=== PATIENT | male | born 1960 | race Caucasian/White ===

== ENCOUNTER 2018-10-01 22:00 | Emergency (ER) | payer OTHER, SELFPAY ==
[2018-10-01 22:10] VITALS: BP 161/95; PULSE 70; RESP 18; TEMP 37.1; O2SAT 98; BMI 27.8
--- NOTE | 2018-10-01 22:17 | DI.RAD.S_ITS ---
PROCEDURE: XR CHEST 1V INDICATIONS: Left chest pain TECHNIQUE: One view of the chest was acquired. COMPARISON: None. FINDINGS: Surgical changes and devices: None. Lungs and pleura: Lungs are clear. No pleural effusions or pneumothorax. Mediastinum: Mediastinal contours appear normal. Heart size is normal. Bones and chest wall: No suspicious bony lesions. Age-appropriate bony degenerative changes are seen. Overlying soft tissues appear unremarkable. IMPRESSION: Portable chest within normal limits. Note: No significant discrepancy from the preliminary report. Dictated by: Delvis Bell M.D. on 10/02/2018 at 5:47 Approved by: Delvis Bell M.D. on 10/02/2018 at 5:48
[2018-10-01] MEDS: SODIUM CHLORIDE 0.9% 1,000 ML 150 ML IV (22:24)
[2018-10-01] MEDS: ASPIRIN 81 MG TAB 324 MG PO (22:24)
[2018-10-01 22:30] LABS: D Dimer 255 ng/mL (<230)
[2018-10-01 22:32] LABS: Add Manual Diff / Slide Review NO; Alanine Aminotransferase 17 IU/L (21-72); Albumin 4.1 g/dL (3.5-5.0); Albumin Globulin Ratio 1.3 (1.0-2.8); Alkaline Phosphatase 42 U/L (38-126); Aspartate Aminotransferase 20 IU/L (17-59); BUN Creatinine Ratio 18.3 (6-22); Basophils Absolute Auto 100 /uL (0-100); Basophils Percent Auto 0.8 % (0-2); Bilirubin Total 0.5 mg/dL (0.2-1.3); Blood Urea Nitrogen 22 mg/dL (9-20); Carbon Dioxide 30 mmol/L (22-32); Chloride 103 mmol/L (98-107); Creatine Kinase 67 U/L (55-170); Eosinophils Absolute Auto 200 /uL (0-450); Eosinophils Percent Auto 3.7 % (2-4); Estimated Glomerular Filt Rate > 60.0 mL/min (>60); Globulin 3.1 g/dL (1.7-4.1); Glucose 114 mg/dL (70-100); HEMOLYSIS < 15 (0-50); Hematocrit 39.1 % (41-53); Hemoglobin 12.5 g/dL (13.5-17.5); Lipase 160 U/L (23-300); Lymphocytes Absolute Auto 1900 /uL (1100-4500); Lymphocytes Percent Auto 30.6 % (25-40); Mean Corpuscular HGB Conc 31.9 % (30-36); Monocytes Absolute Auto 800 /uL (0-900); Monocytes Percent Auto 12.8 % (3-14); Neutrophils Absolute Auto 3300 /uL (1500-7000); Neutrophils Percent Auto 52.1 % (50-75); Platelet Count 244 X10^3/uL (150-400); Potassium 3.8 mmol/L (3.4-5.1); Red Blood Cell Count 5.43 X10^6/uL (4.5-5.9); Red Cell Distribution Width 18.2 % (11.6-14.8); Sodium 142 mmol/L (137-145); Total Protein 7.2 g/dL (6.3-8.2); White Blood Cell Count 6.4 X10^3/uL (4.5-11.0)
[2018-10-01 22:44] LABS: Troponin I < 0.012 ng/mL (0.01-0.034)
--- NOTE | 2018-10-01 23:05 | ED_ITS ---
HPI - Chest Pain General Chief Complaint: Chest Pain Stated Complaint: Chest pain Time Seen by Provider: 10/01/18 22:00 Source: patient and family Mode of arrival: ambulatory Limitations: no limitations History of Present Illness HPI narrative: A 58-year-old male nonsmoker with benign medical history presents with his in the chief complaint of stabbing left anterior chest pain since last night. He denies associated symptoms such as dizziness or weakness nor lightheadedness. He has no cough, fever or chills. He denies any shortness of breath or hemoptysis. He has had no nausea, vomiting or diaphoresis. He denies any worsening symptoms with exertion. He denies any history of cancer or known clotting disorder but did travel by airplane from [place] few months ago. He denies any injury or overuse scenario MD complaint: chest pain Onset (ago): hour(s) Duration: intermittent Pain location: left chest Severity: mild Quality: sharp Pain radiation: none Relieving factors: nothing Exacerbating factors: nothing Treatments prior to arrival chest pain: none Review of Systems Constitutional Denies chills, Denies fever(s), Denies lethargy and Denies weakness Eyes Denies change in vision, Denies eye discharge, Denies irritation and Denies loss of vision ENT Ears, Nose, Mouth, and Throat: Denies change in voice, Denies neck pain and Denies sore throat Cardiovascular Reports chest pain, Denies irregular heart rhythm, Denies lightheadedness, Denie s palpitations, Denies dyspnea, Denies dyspnea on exertion and Denies orthopnea Respiratory Denies cough, Denies dyspnea, Denies dyspnea on exertion and Denies wheezing Gastrointestinal Gastrointestinal: Denies abdominal pain, Denies change in bowel habits, Denies diarrhea, Denies nausea and Denies vomiting Genitourinary Denies hematuria, Denies flank pain, Denies urinary incontinence and Denies urinary urgency Musculoskeletal Denies neck pain Integumentary/Breasts Denies pruritus, Denies erythema, Denies rash and Denies wounds Neurologic Denies confusion, Denies loss of vision and Denies weakness Psychiatric Denies anxiety, Denies confusion, Denies depression, Denies homicidal ideation and Denies suicidal ideation Endocrine Denies palpitations Hematologic/Lymphatic Denies easy bruising Allergic/Immunologic Denies wheezing [facility] Social History Smoking Status: Never smoker Social History Smoking Status: Never smoker Exam Narrative Exam Narrative: GEN: AOx3 and in mild distress EYES: Pupils are equal, round, and reactive to light and accommodation. Extraoccular muscles are intact bilaterally. There is no subconjunctival hemorrhage or exudate. CHEST: No worsening with palpation. Lungs are clear to auscultation bilaterally and free of wheezes, rales, or rhonchi. Heart rate is regular rhythm, there are no murmurs, clicks, rubs, or gallops. There is no chest wall tenderness. ABD: Abdomen is soft and nontender. There is no guarding or rebound. Bowel sounds are normal in all 4 quadrants. There is no mass or organomegaly. EXT: Full painless ROM of all extremities with no loss of sensation or strength. SKIN: Warm, pink, and dry. No erythema or rash Initial Vital Signs Initial Vital Signs: Vital Signs Temperature 98.7 F 10/01/18 22:10 Pulse Rate 70 10/01/18 22:10 Respiratory Rate 18 10/01/18 22:10 Blood Pressure 161/95 H 10/01/18 22:10 Pulse Oximetry 98 10/01/18 22:10 Scores HEART Score Heart Score history: Slightly Suspicious Heart Score EKG: Normal Heart Score Age: 45-64 years old Heart Score risk factors: No known risk factors Heart Score troponin: < or = to normal limit Heart Score Total: 1 PERC Score Age greater than or equal to 50 years: Yes Heart rate greater than or equal to 100 bpm: No Room Air O2 Sat less than 95%: No Unilateral leg swelling: No Recent trauma or surgery: No Hemoptysis: No Prior PE or DVT: No Hormone Use: No Total PERC Score: 1 Wells' Criteria for PE Clinical signs and symptoms of DVT: No PE is #1 Dx or equally likely: No Heart rate > 100: No Immobilization at least 3 days or surg in previous 4 weeks: No History of PE or DVT: No Hemoptysis: No Malignancy w/Treatment within 6 months or palliative: No Wells' PE Score total: 0 Course Orders Ordered: ED Orders 10/01/18 22:00 Complete Blood Count AUTO DIFF Stat Comprehensive Metabolic Panel Stat D Dimer Stat Lipase Stat Troponin & CK Cardiac Panel Stat 10/01/18 22:17 XR chest 1V Stat EKG-12 Lead Stat Discontinued Medications Aspirin (Aspirin Chew) 324 mg PO NOW ONE Stop: 10/01/18 22:18 Last Admin: 10/01/18 22:24 Dose: 324 mg Sodium Chloride (Normal Saline 0.9%) 1,000 mls @ 150 mls/hr IV CONT DAVID Last Infusion: 10/01/18 23:15 Dose: 0 mls/hr Admin: 10/01/18 22:24 Dose: 150 mls/hr Vital Signs - 8 hr 10/01/18 22:10 10/01/18 23:17 Temperature 98.7 F 98.8 F Pulse Rate 70 64 Respiratory Rate 18 18 Blood Pressure 161/95 H 137/89 Pulse Oximetry 98 99 MDM - Chest Pain Medical Records Data Attestation: I reviewed the patient's medical records. Lab Data Attestation: I reviewed the patient's lab results. Result diagrams: 10/01/18 22:00 10/01/18 22:00 Lab Results 10/01/18 10/01/18 10/01/18 Range/Units 22:00 22:00 22:00 WBC 6.4 (4.5-11.0) X10^3/uL RBC 5.43 (4.5-5.9) X10^6/uL Hgb 12.5 L (13.5-17.5) g/dL Hct 39.1 L (41-53) % MCV 72.0 L (80-100) fL MCH 23.0 L (26-34) PG MCHC 31.9 (30-36) % RDW 18.2 H (11.6-14.8) % Plt Count 244 (150-400) X10^3/uL Neut % (Auto) 52.1 (50-75) % Lymph % (Auto) 30.6 (25-40) % [place] % (Auto) 12.8 (3-14) % Eos % (Auto) 3.7 (2-4) % Baso % (Auto) 0.8 (0-2) % Neut # (Auto) 3300 (4056-0715) /uL Lymph # (Auto) 1900 (4963-7643) /uL [place] # (Auto) 800 (0-900) /uL Eos # (Auto) 200 (0-450) /uL Baso # (Auto) 100 (0-100) /uL D-Dimer 255 H (<230) ng/mL Sodium 142 (137-145) mmol/L Potassium 3.8 (3.4-5.1) mmol/L Chloride 103 (98-107) mmol/L Carbon Dioxide 30 (22-32) mmol/L BUN 22 H (9-20) mg/dL Creatinine 1.20 (0.66-1.25) mg/dL Estimated GFR > 60.0 (>60) mL/min BUN/Creatinine Ratio 18.3 (6-22) Glucose 114 H (70-100) mg/dL Calcium 9.0 (8.4-10.2) mg/dL Total Bilirubin 0.5 (0.2-1.3) mg/dL AST 20 (17-59) IU/L ALT 17 L (21-72) IU/L Alkaline Phosphatase 42 (38-126) U/L Total Creatine Kinase 67 (55-170) U/L CK-MB (CK-2) TNP CK-MB (CK-2) Rel Index TNP Troponin I < 0.012 (0.01-0.034) ng/mL Total Protein 7.2 (6.3-8.2) g/dL Albumin 4.1 (3.5-5.0) g/dL Globulin 3.1 (1.7-4.1) g/dL Albumin/Globulin Ratio 1.3 (1.0-2.8) Lipase 160 (23-300) U/L Imaging Data Chest x-ray: My impression: NAP ECG Data Attestation: I personally reviewed and interpreted this ECG as follows: Prior ECG tracings: not available for review Interpretation: EKG is normal sinus rhythm rate [ Sixty-seven] and free of any signs of ischemia or ectopy. No ST segmental elevation or depression. No T wave inversions. RBBB. FL 197. QRS 130. QT 391 MDM Narrative Medical decision making narrative: 58-year-old male with sharp and stabbing left anterior chest pain for almost 24 hours. Multiple causes of chest pain considered including MA, PE, pneumothorax, pneumonia, aortic dissection, and pleurisy. Patient reports no radiation, no diaphoresis, no provocation with exertion, and no vomiting. Heart score is 1, EKG nonischemic. Troponin negative. Wells and PERC considered for evaluation of possible PE and D-dimer - when age corrected, therefore no CT angiogram performed. Extensive return precautions given to the patient and his whom have had their questions answered to their apparent satisfaction. Discharge Plan Departure Patient Disposition: Home Clinical Impression: Atypical chest pain Discharge Date/Time: 10/01/18 23:19 Interventions: ED Discharge Assessment Last Done: 10/01/18 23:17 Instructions: DI for Atypical Chest Pain Activity Restrictions/Additional Instructions: *You have been diagnosed with [ atypical chest pain ] *What to do: *Take medications as directed: increase daily aspirin to 325mg *Follow up with your primary care provider in 2-3 days, call for an appointment. Let them know you were seen in the Emergency Department and that we ask that you be seen in follow up *Return to ER if you should have any new, worsening or concerning symptoms
[2018-10-01 23:17] VITALS: BP 137/89; PULSE 64; RESP 18; TEMP 37.1; O2SAT 99
== END 2018-10-01 23:19 | disposition home or self-care (01) ==
PROVIDERS: Emergency Provider Emergency Medicine
DX: R07.89 Other chest pain (principal)
CPT/HCPCS: 36591; 71045; 80053; 82550; 83690; 84484; 85025; 85379; 93005; 93041; 96360; 99283; 99285